=== PATIENT | female | born 2000 | race Asian ===

== ENCOUNTER 2023-09-25 14:28 | Emergency (ER) | payer OTHER ==
[~2023-09-25] VITALS: Ht 167.6 cm; Wt 105.5 kg
[2023-09-25 16:13] VITALS: BP 101/56; PULSE 79; RESP 20; TEMP 97.5; O2SAT 95
[2023-09-25] MEDS ORDERED: LIDOCAINE HCL 2 % INJ 2ML MPF NEB ONE (16:45)
== END 2023-09-25 17:41 | disposition home or self-care (01) ==
LOC: ER 14:28
DX: L05.01 Pilonidal cyst with abscess (principal)
CPT/HCPCS: 10080

== ENCOUNTER 2023-09-28 10:24 | Emergency (ER) | payer OTHER ==
[~2023-09-28] VITALS: Ht 167.6 cm; Wt 105.9 kg
[2023-09-28 12:45] VITALS: BP 105/82; PULSE 81; RESP 16; TEMP 97.1; O2SAT 96
== END 2023-09-28 12:43 | disposition home or self-care (01) ==
LOC: ER 10:24
DX: S30.91XD Unspecified superficial injury of lower back and pelvis, subsequent encounter (principal); X58.XXXD Exposure to other specified factors, subsequent encounter

== ENCOUNTER 2023-10-02 07:12 | Emergency (ER) | payer OTHER ==
[~2023-10-02] VITALS: Ht 167.6 cm; Wt 107.2 kg
[2023-10-02 08:01] VITALS: BP 100/71; PULSE 76; RESP 19; TEMP 98.2; O2SAT 98
== END 2023-10-02 08:39 | disposition home or self-care (01) ==
LOC: ER 07:12
DX: S30.91XD Unspecified superficial injury of lower back and pelvis, subsequent encounter (principal); X58.XXXD Exposure to other specified factors, subsequent encounter

== ENCOUNTER 2023-10-05 07:05 | Emergency (ER) | payer OTHER ==
[~2023-10-05] VITALS: Ht 167.6 cm; Wt 107.0 kg
[2023-10-05 07:44] VITALS: BP 107/60; PULSE 88; RESP 16; TEMP 98.1; O2SAT 97
== END 2023-10-05 07:57 | disposition home or self-care (01) ==
LOC: ER 07:05
DX: T81.89XD Other complications of procedures, not elsewhere classified, subsequent encounter (principal)